=== PATIENT | female | born 1980 | race Caucasian/White ===

== ENCOUNTER 2021-01-08 09:45 | Emergency (ER) | payer OTHER ==
[~2021-01-08] VITALS: Ht 167.6 cm; Wt 26.2 kg
--- NOTE | 2021-01-08 12:00 | NUR ---
PT GIVEN CLEAN PANTS TO PUT ON. MEAL TRAY PROVIDED AND PT ATE 50%.
[2021-01-08 13:22] VITALS: BP 157/79
--- NOTE | 2021-01-08 13:23 | NUR ---
Patient/Caregiver given discharge instructions and they have confirmed that they understand the instructions. Patient ambulatory with steady gait. NAD, all questions answered appropriately, denies additional needs at this time. No personal belongings left in room after discharge. Pt left a bag of urine soaked clothes which I threw away, she also left all of the community resources information
== END 2021-01-08 13:23 | disposition home or self-care (01) ==
LOC: ED 10:31
DX: R32 Unspecified urinary incontinence (principal)
CPT/HCPCS: 99283